=== PATIENT | female | born 1975 | race Caucasian/White ===

== ENCOUNTER 2017-01-10 04:10 | Emergency (ER) | payer SELFPAY ==
[~2017-01-10] VITALS: Ht 149.9 cm; Wt 85.3 kg
[~2017-01-10 04:10] MED LIST: ANTIVERT12.5 MG PO; CIPRO500 MG PO; FLAGYL500 MG PO
== END 2017-01-10 04:45 | disposition short-term general hospital (02) ==
LOC: ER 04:10
DX: R21 Rash and other nonspecific skin eruption (principal)
CPT/HCPCS: J1200